=== PATIENT | female | born 1990 | race African-American/Black ===

== ENCOUNTER → 2016-06-18 | Outpatient (CLI) | payer BC, SELFPAY ==
[~2016-06-18] MED LIST: MOTRIN-DPS800 MG PO; NIPPLECREAM TP; PRENATAL VIT1 TAB PO; TYLENOL #3 DPS1 TAB PO; TYLENOL DPS325 MG PO
== END | disposition home or self-care (01) ==
LOC: RAD.S 16:04
DX: R10.2 Pelvic and perineal pain (principal); N83.8 Other noninflammatory disorders of ovary, fallopian tube and broad ligament

== ENCOUNTER 2016-07-24 05:20 | Day surgery (SDC) | payer BC, SELFPAY ==
[~2016-07-24] VITALS: Ht 165.1 cm; Wt 67.2 kg
[~2016-07-24 05:20] MED LIST changes: -TYLENOL DPS325 MG PO
--- NOTE | 2016-07-24 08:10 | HP ---
ADMIT: 07/24/2016 RM/LOC: [facility] MR#: [id number] [id number] [id number] [place], [place] [address] IRENE NGUYEN [address] [place] [address] Pre-OP History and Physical SEX: F AGE: 26 : 1990 DATE OF SERVICE: 07/24/2016 CHIEF COMPLAINT: Rectocele. HISTORY OF PRESENT ILLNESS: The patient is a 26-year-old 6, para 6 Cze[place] female who originally presented to the [facility] in August of 2015 secondary to a positive test and need for care. Upon taking the patient's history, she reported her last baby was delivered in [facility] with no attendant present. She reports that she thinks she may have had a tear which never healed correctly. Upon evaluation, at the time of colposcopy, the patient was noted to have a grade 2 to 3 rectocele as well as weakness and separation in the perineal area. The patient, after delivery, desired definitive surgical management for these problems. PAST MEDICAL HISTORY: 1. depression. 2. Abnormal Pap smear. 3. Geographic tongue. PAST SURGICAL HISTORY: None. FAMILY HISTORY: Unremarkable. SOCIAL HISTORY: The patient denies alcohol, tobacco, or illicit drug use. 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 MEDICATIONS: 1. Tylenol 500 mg one to two tablets p.o. p.r.n. 2. Prozac 20 mg p.o. daily. ALLERGIES: NO KNOWN MEDICAL ALLERGIES. REVIEW OF SYSTEMS: Significant for pelvic pain, specifically in the left lower quadrant. The patient denies nausea, vomiting, upper respiratory symptoms, chest pain, or shortness of breath. PHYSICAL EXAMINATION: GENERAL: Well-developed, well-nourished female, alert and oriented x3, in no acute distress. VITAL SIGNS: Blood pressure 108/64, height 5 feet 5 inches, weight 150 pounds. HEENT: Head is normocephalic, atraumatic. Pupils are equal and round. Extraocular muscles are intact. NECK: Supple. Trachea midline. Thyroid not palpable. HEART: Regular rate and rhythm. LUNGS: Clear to auscultation bilaterally. ABDOMEN: Soft, nontender, and nondistended with positive bowel sounds. EXTREMITIES: No clubbing, cyanosis, or edema. NEUROLOGIC: Cranial nerves II through XII are grossly intact. 2+ deep tendon reflexes noted. ADMIT: 07/24/2016 RM/LOC: [facility] [place] [facility] MR#: [id number] [address] IRENE [place] / [place] [address] Pre-OP History and Physical SEX: F AGE: 26 : 1990 PELVIS: Examination reveals weakening of the perineum as well as a grade 2 to 3 rectocele. ASSESSMENT AND PLAN: This is a 26-year-old 6, para 6 Somalian female, who presents for definitive surgical management of symptomatic rectocele and perineal weakness and separation. The risks, benefits, and alternatives to rectocele repair using posterior colporrhaphy and perineoplasty were discussed with the patient, including bleeding, infection, and damage to nearby organs. The patient expressed her understanding and agrees to proceed. We also discussed, using the Czech boss miner, the recommendation to avoid future pregnancies as this could cause the repair to be compromised and her problems to return. The patient expressed her understanding of this recommendation. The surgery has been scheduled for 07/24/2016. Georgia Costello MD/ deana JOB #: [id number] CC: Georgia Costello MD, Attending Physician FAMILY PHYSICIAN, Family Physician
--- NOTE | 2016-08-13 13:13 | OR ---
ADMIT: 07/24/2016 RM/LOC: [facility] MR#: [id number] [address] PELON NGUYENADAIR Dow [address] [place] [address] Operative/Delivery Room Report SEX: F AGE: 26 : 1990 SURGERY DATE: 07/24/2016 SURGEON: Georgia Costello MD PREOPERATIVE DIAGNOSES: 1. Grade 2 rectocele. 2. Perineal weakness and separation. POSTOPERATIVE DIAGNOSES: 1. Grade 2 rectocele. 2. Perineal weakness and separation. PROCEDURE: 1. Posterior colporrhaphy. 2. Perineoplasty. BOILER REPAIRMAN: Stacie Steven MD. ANESTHESIA: General endotracheal anesthesia. ESTIMATED BLOOD LOSS: 50 mL. URINE OUTPUT: Not measured. CONDITION: Good. COMPLICATIONS: None. COUNTS: Correct x2 per operating room staff. FINDINGS: 1. Grade 2 rectocele. 2. Grade 2 cystocele. 3. Perineal weakness and separation. DESCRIPTION OF PROCEDURE: The patient was taken to the operating room where general endotracheal anesthesia was obtained without difficulty. She was then prepared and draped in the normal sterile fashion in the dorsal lithotomy position. The patient was examined under anesthesia and found to have a grade 2 rectocele, a grade 2 cystocele, and significant separation of the perineal body with only a thin fragment of skin the vagina from the anus. The hymenal ring remnants were identified on the patient's right side to give anatomic lutheran to the perineal body. The opening of the introitus was placed on tension with Allis clamps. An elliptical incision made over the vaginal mucosa at the introitus. The vaginal mucosa was then held on tension and a combination of sharp dissection with the Metzenbaum scissors and blunt dissection using a Ray-Richard sponge was used to separate the rectovaginal fascia from the vaginal mucosa. Once the rectocele was delineated, the perirectal fascia was then brought together using interrupted mattress sutures of 2-0 PDS ADMIT: 07/24/2016 RM/LOC: [facility] MR#: [id number] [address] [address] NGU[address] [place] [address] Operative/Delivery Room Report SEX: F AGE: 26 : 1990 to plicate the entire rectocele. The excess vaginal mucosa was then trimmed, and interrupted stitches of 2-0 Vicryl was used to reapproximate the vaginal tissue. At this point in time, attention was turned to the lutheran of the perineal body. The bulbocavernosus muscle was reapproximated using interrupted stitches of 2-0 Vicryl to bring the perineal body musculature back to the midline and reapproximate. The overlying perineal skin was then reapproximated with subcuticular stitch of 3-0 Vicryl in a running fashion. At the end of the procedure, the perineal body was reapproximated in the midline with significant increase in length of the perineal body. The patient tolerated the procedure well. Sponge, lap, and needle counts were correct x2 per operating room staff. The patient was awakened, extubated, and taken to recovery room in stable condition. Georgia Costello MD/ deana JOB #: [id number] CC: Georgia Costello MD, Attending Physician NO FAMILY PHYSICIAN, Family Physician
[2016-10-28] MEDS ORDERED: TYLENOL DPS325 MG PO (17:51)
== END 2016-07-24 12:19 | disposition home or self-care (01) ==
LOC: SSS 05:20
PROC: 0WQNXZZ Repair Female Perineum, External Approach (ICD-10-PCS; principal; 2016-07-24)
PROC: 0TQD7ZZ Repair Urethra, Via Natural or Artificial Opening (ICD-10-PCS; principal; 2016-07-24)
PROC: 0JQC0ZZ Repair Pelvic Region Subcutaneous Tissue and Fascia, Open Approach (ICD-10-PCS; principal; 2016-07-24)
DX: N81.6 Rectocele (principal); N81.10 Cystocele, unspecified; N81.89 Other female genital prolapse; Z79.899 Other long term (current) drug therapy